=== PATIENT | female | born 1985 | race Caucasian/White ===

== ENCOUNTER 2018-12-28 19:26 | Emergency (ER) | payer OTHER, MEDICAID ==
[~2018-12-28] VITALS: Ht 167.6 cm; Wt 72.6 kg
[~2018-12-28 19:26] MED LIST: AEROCHAMBER PL1 EAC2 MC; ALLEGRA ALLERGY60 MG PO; APAP500; AZITHROMYCIN 2250 MG PO; BACTRIM DS TAB1 EACH PO; CLEOCIN HCL150 MG PO; DIPHENHIST50 MG PO; FLEXERIL PO; IBUPROFEN 200200 M1 PO; IBUPROFEN 600600 M1 PO; IBUPROFEN 800800 M1 PO; IBUPROFEN 800800 MG PO; KEFLEX250 M1 PO; KEFLEX500 M1 PO; LAMICTAL100 MG; LIDOCAINE 22 %/30 GM MM; LORTABELXR PO; MEDROL DOSPAK21 TA1 PO; NAPROSYN500 MG PO; NOHOMEMEDICATIONS; NORCO 5-325 TA1 EAC1 PO; NORCO 5-325 TA1 EACH PO; NORCO 7.5-3251 EACH PO; NORFLEX100 MG PO; ONDANSETRON HCL4 M2 PO; ORTHO-CYCLEN1 EACH PO; PREDNISONE50 MG PO; PROAIR HFA8.5 GM IH; PYRIDIUM100 M1 PO; PYRIDIUM200 MG PO; ROBAXIN500 MG PO; TRAMADOL 50 MG50 MG PO; ULTRAM 50MG TAB50 MG PO; VITANATAL OB +1 EACH PO; XANAX 0.25 MG0.25 MG; YASMIN 28 TABL1 EACH PO; YAZ 28 TABLET1 EACH PO; ZANTAC 150MG T150 MG PO; ZPAK PO
[2018-12-28] MEDS ORDERED: PRENATA CHEWAB1 EACH PO (19:33)
[2018-12-28] MEDS ORDERED: AMOXICILLIN 50500 MG PO ×2 (19:40→20:17)
[2018-12-28 20:23] VITALS: BP 132/74
== END 2018-12-28 20:23 | disposition home or self-care (01) ==
LOC: M.ERS 19:26
DX: J02.9 Acute pharyngitis, unspecified (principal); J45.909 Unspecified asthma, uncomplicated; G43.909 Migraine, unspecified, not intractable, without status migrainosus; Z77.22 Contact with and (suspected) exposure to environmental tobacco smoke (acute) (chronic); Z91.040 Latex allergy status

== ENCOUNTER 2019-08-04 14:29 | Emergency (ER) | payer MEDICAID ==
[~2019-08-04] VITALS: Ht 167.6 cm; Wt 59.0 kg
[~2019-08-04 14:29] MED LIST changes: +AMOXICILLIN 50500 MG PO; +PRENATA CHEWAB1 EACH PO
[2019-08-04] MEDS ORDERED: AMOXICILLIN 50500 MG PO (15:26)
[2019-08-04 15:35] VITALS: BP 115/79
== END 2019-08-04 15:36 | disposition home or self-care (01) ==
LOC: M.ERS 14:29
DX: O26.891 Other specified pregnancy related conditions, first trimester (principal); J32.1 Chronic frontal sinusitis; R09.82 Postnasal drip; G43.909 Migraine, unspecified, not intractable, without status migrainosus; O99.511 Diseases of the respiratory system complicating pregnancy, first trimester; Z91.040 Latex allergy status; Z77.22 Contact with and (suspected) exposure to environmental tobacco smoke (acute) (chronic); Z3A.12 12 weeks gestation of pregnancy

== ENCOUNTER 2019-08-13 20:39 | Emergency (ER) | payer MEDICAID ==
[~2019-08-13] VITALS: Ht 167.6 cm; Wt 59.0 kg
[2019-08-13 21:30] LABS: INFLUENZA A ANTIGEN Negative (Negative); INFLUENZA B ANTIGEN Negative (Negative)
[2019-08-13] MEDS ORDERED: MEDROLDOSEPACK PO (22:07)
[2019-08-13] MEDS ORDERED: AMOXICILLIN 50500 MG PO (22:11)
[2019-08-13 22:24] VITALS: BP 110/66
== END 2019-08-13 22:24 | disposition home or self-care (01) ==
LOC: M.ERS 20:39
PROVIDERS: Emergency Medicine
DX: O99.511 Diseases of the respiratory system complicating pregnancy, first trimester (principal); O99.351 Diseases of the nervous system complicating pregnancy, first trimester; Z3A.14 14 weeks gestation of pregnancy; Z91.040 Latex allergy status; Z77.22 Contact with and (suspected) exposure to environmental tobacco smoke (acute) (chronic)